=== PATIENT | female | born 1960 | race Hispanic/Latino ===

== ENCOUNTER 2021-04-12 07:26 | Inpatient (IN) | payer MEDICARE ==
[2021-04-09 09:13] LABS: BASOPHILS % 0.4 % (0.0-1.0); EOSINOPHILS # (AUTO) 0.2 (0.0-0.4); EOSINOPHILS % 2.1 % (0.0-6.0); HEMATOCRIT 40.3 % (34.2-44.1); HEMOGLOBIN 12.7 g/dL (12.0-16.0); LYMPHOCYTES # (AUTO) 2.2 (1.0-3.2); LYMPHOCYTES % 21.4 % (18.0-39.1); MEAN CORPUSCULAR HEMOGLOBIN 28.6 pg (28-32); MEAN CORPUSCULAR HGB CONC 31.5 g/dL (31-35); MEAN CORPUSCULAR VOLUME 90.8 fL (81-99); MONOCYTES # (AUTO) 0.6 (0.2-0.8); MONOCYTES % 5.7 % (4.4-11.3); NEUTROPHILS # (AUTO) 7.1 (2.1-6.9); NEUTROPHILS % 69.9 % (38.7-80.0); PLATELET COUNT 287 x10e3/uL (140-360); RED BLOOD COUNT 4.44 x10e6/uL (3.6-5.1); RED CELL DISTRIBUTION WIDTH 13.7 % (11.7-14.4)
[2021-04-09 09:32] LABS: ALBUMIN 3.3 g/dL (3.5-5.0); ALBUMIN/GLOBULIN RATIO 0.8 (0.8-2.0); CALCIUM 9.1 mg/dL (8.4-10.2); CREATININE, SERUM 0.84 mg/dL (0.57-1.11)
[~2021-04-12 07:26] MED LIST: ALENDRONATE SOD70 MG PO; BUPIVACAINE 0.25% 30ML SDV ONE; FAMOTIDINE20 MG PO; LOSARTAN-HCTZ1 EACH PO; MOBIC15 MG PO; MOTRIN200 MG PO; PRAVASTATIN SOD40 MG PO; TYLENOL #3 PO; VITAMIN D PO
[2021-04-12] MEDS ORDERED: ONDANSETRON HCL INJ 2MG/ML 2ML 2 MG/ML VIAL ONE (07:46)
[2021-04-12] MEDS ORDERED: METOCLOPRAMIDE HCL 10 MG/2ML VIAL ONE (07:46)
[2021-04-12] MEDS ORDERED: ONDANSETRON HCL INJ 2MG/ML 2ML 2 MG/ML VIAL IV PRN (09:15)
[2021-04-12] MEDS: LACTATED RINGER'S 1,000 ML INJ SCH ×3 (09:15→18:24)
[2021-04-12] MEDS ORDERED: HYDROCODONE/APAP 7.5MG-325MG 1 EA TAB PO PRN (09:15)
[2021-04-12] MEDS ORDERED: FENTANYL CITRATE/PF 100MCG/2 ML INJ ONE ×2 (09:32→16:18)
[2021-04-12] MEDS ORDERED: HYDRALAZINE HCL 20 MG/ML VIAL ONE (10:00)
[2021-04-12] MEDS ORDERED: LABETALOL HCL 20 ML ONE (11:02)
[2021-04-12 14:38] VITALS: BP 153/76
[2021-04-12] MEDS: Morphine 2mg Syringe 2 MG/ML SYR IV PRN ×2 (15:06→20:00)
[2021-04-12 15:27] VITALS: BP 157/72
[2021-04-12 15:33] VITALS: BP 157/72
[2021-04-12] MEDS ORDERED: MIDAZOLAM HCL 2 MG/2 ML VIAL ONE (16:18)
[2021-04-12 17:22] VITALS: BP 150/72
[2021-04-12] MEDS ORDERED: SCOPOLAMINE 1.5 MG PATCH TOP ONE (17:35)
[2021-04-12 19:39] VITALS: BP 160/71
[2021-04-12 19:40] VITALS: BP 160/71
[2021-04-12] MEDS: ENOXAPARIN SOD INJ 40 MG/0.4 ML SYR SC SCH (20:35)
[2021-04-13] VITALS: BP 150/75
[2021-04-13] MEDS: LACTATED RINGER'S 1,000 ML INJ SCH ×2 (01:48→09:35)
[2021-04-13] MEDS: Morphine 2mg Syringe 2 MG/ML SYR IV PRN (02:13)
[2021-04-13 04:00] VITALS: BP 136/64
[2021-04-13 05:15] LABS: BASOPHILS % 0.2 % (0.0-1.0); EOSINOPHILS % 0.1 % (0.0-6.0); HEMATOCRIT 40.9 % (34.2-44.1); HEMOGLOBIN 13.4 g/dL (12.0-16.0); LYMPHOCYTES # (AUTO) 2.4 (1.0-3.2); LYMPHOCYTES % 11.8 % (18.0-39.1); MEAN CORPUSCULAR HEMOGLOBIN 29.1 pg (28-32); MEAN CORPUSCULAR HGB CONC 32.8 g/dL (31-35); MEAN CORPUSCULAR VOLUME 88.7 fL (81-99); MONOCYTES # (AUTO) 1.5 (0.2-0.8); MONOCYTES % 7.3 % (4.4-11.3); NEUTROPHILS % 79.9 % (38.7-80.0); PLATELET COUNT 303 x10e3/uL (140-360); RED BLOOD COUNT 4.61 x10e6/uL (3.6-5.1); RED CELL DISTRIBUTION WIDTH 13.8 % (11.7-14.4)
[2021-04-13 05:46] LABS: ANION GAP 19.9 mmol/L (8-16); CALCIUM 9.6 mg/dL (8.4-10.2); CREATININE, SERUM 0.77 mg/dL (0.57-1.11); MAGNESIUM 1.9 MG/DL (1.3-2.1); POTASSIUM 3.9 mmol/L (3.5-5.1)
[2021-04-13 07:12] VITALS: BP 136/64
[2021-04-13 08:00] VITALS: BP 141/69
[2021-04-13] MEDS: ENOXAPARIN SOD INJ 40 MG/0.4 ML SYR SC SCH (08:40)
== END 2021-04-13 12:00 | disposition home or self-care (01) | DRG 621 ==
LOC: OR 07:26 → PACU V 09:12 → IMCU 13:35
PROVIDERS: ADMIT Surgery; ATTEND Surgery
PROC: 0DB64Z3 Excision of Stomach, Percutaneous Endoscopic Approach, Vertical (ICD-10-PCS; principal; 2021-04-12 07:30)
DX: E66.01 Morbid (severe) obesity due to excess calories (principal); Z68.41 Body mass index [BMI] 40.0-44.9, adult; I10 Essential (primary) hypertension; E78.5 Hyperlipidemia, unspecified; Z20.822 Contact with and (suspected) exposure to COVID-19
CPT/HCPCS: 36415; 80048; 80053; 83735; 84100; 85025; 93005; J0360; J0690; J1650; J2250; J2270; J2405; J2765; J3010; J7121; U0002